=== PATIENT | male | born 1945 | race Caucasian/White ===

== ENCOUNTER 2024-12-04 05:48 | Day surgery (SDC) | payer MEDICARE ==
[2024-11-27 08:18] VITALS: BMI 22.9
[2024-12-04] MEDS ORDERED: Rocuronium Bromide 10 MG/ML (10ML VIAL) ONE (06:53)
[2024-12-04] MEDS ORDERED: fentaNYL PF 100 MCG/2 ML SYRINGE ONE (06:53)
[2024-12-04] MEDS ORDERED: Ondansetron PF 4 MG/2 ML Vial ONE (06:54)
[2024-12-04] MEDS ORDERED: Dexamethasone 20 MG/5 ML VIAL ONE (06:54)
[2024-12-04] MEDS ORDERED: PROPOFOL 20 ML ONE (06:54)
[2024-12-04] MEDS ORDERED: Lidocaine 1% PF 5 ML VIAL ONE (06:54)
[2024-12-04] MEDS ORDERED: Bupivacaine 0.25% HCL 30 ML VIAL ONE (07:17)
[2024-12-04] MEDS ORDERED: EPINEPHrine 1 MG/ML VIAL ONE (07:17)
[2024-12-04] MEDS ORDERED: CEFAZOLIN 2 GM VIAL ONE (07:23)
[2024-12-04] MEDS ORDERED: PHENYLEPHRINE-NS 100 MCG/ML 10 ML SYRINGE ONE (07:45)
[2024-12-04] MEDS ORDERED: Meperidine HCl/PF 25 MG (1 mL) VIAL ONE (09:22)
[2024-12-04] MEDS ORDERED: Glycopyrrolate 0.2 MG/ML 5 ML SYRINGE ONE (09:29)
[2024-12-04] MEDS ORDERED: NEOSTIGMINE 3 MG/3 ML SYRINGE ONE (09:29)
[2024-12-04] MEDS ORDERED: fentaNYL 50 mcg/mL 1 mL Vial ONE (09:34)
[2024-12-04] MEDS ORDERED: HYDROcodone/Acetaminophen 5/325 mg Tablet ONE (10:22)
== END 2024-12-04 11:34 | disposition home or self-care (01) ==
LOC: SDC 05:48
PROVIDERS: ATTEND Surgery
PROC: 0YUA4JZ Supplement Bilateral Inguinal Region with Synthetic Substitute, Percutaneous Endoscopic Approach (ICD-10-PCS; principal; 2024-12-04)
DX: K40.20 Bilateral inguinal hernia, without obstruction or gangrene, not specified as recurrent (principal); N40.0 Benign prostatic hyperplasia without lower urinary tract symptoms; Z88.8 Allergy status to other drugs, medicaments and biological substances; Z79.82 Long term (current) use of aspirin
CPT/HCPCS: 49650; C1781 ×2; J0171; J0665; J1100; J2175; J2405; J2704; J3010; S2900

== ENCOUNTER 2024-12-06 14:07 | Emergency (ER) | payer MEDICARE ==
[2024-12-06 14:52] LABS: #Basophils Less than 0.03 10x3/uL (0.0-0.2); #Eosinophils Less than 0.03 10x3/uL (0.0-0.7); %Basophils 0.2 % (0.0-1.0); %Lymphocytes 4.5 % (21.0-51.0); %Monocytes 6.4 % (0.0-10.0); %Neutrophils 88.5 % (42.0-75.0); Hematocrit 40.8 % (42.0-52.0); Mean Corpuscular HGB CONC 34.3 g/dL (32.0-36.0); Mean Corpuscular Hemoglobin 30.4 pg (27.0-31.0); Mean Corpuscular Volume 88.7 fL (78.0-98.0); Mean Platelet Volume 9.5 fL (7.4-10.4); Platelet Count 263 10x3/uL (130-400); RBC Distribution Width 12.4 % (11.5-14.5)
[2024-12-06 15:10] LABS: ALT (SGPT) 13 U/L (Less than 45); AST (SGOT) 35 U/L (11-34); Albumin 4.1 g/dL (3.1-4.5); Alkaline Phosphatase 71 U/L (40-110); Anion Gap 13 mmol/L (10-20); BUN (Urea Nitrogen) 13 mg/dL (8.4-25.7); Bilirubin, Total 0.7 mg/dL (0.3-1.2); Calc. Creatinine Clearance 0 mL/min (70-130); Calcium 9.1 mg/dL (7.8-10.44); Carbon Dioxide 27 mmol/L (23-31); Chloride 101 mmol/L (98-107); Estimated GFR 73; Globulin 3.3 g/dL (2.4-3.5); Glucose 129 mg/dL (83-110); Lipase 20 U/L (8-78); Potassium 4.1 mmol/L (3.5-5.1); Protein, Total 7.4 g/dL (5.8-8.1); Sodium 137 mmol/L (136-145)
[2024-12-06 15:12] LABS: Bacteria/HPF None Seen HPF (None Seen); Bilirubin Negative (Negative); Blood, Urine 2+ (Negative); CAUTI Indications for Culture Pelvic or flank pain; Clarity Clear (Clear); Glucose, Urine (Dipstick) Normal (Negative); Ketone, Urine Negative (Negative); Leukocyte 250 Leu/uL (Negative); Nitrite Negative (Negative); Protein, Urine (Dipstick) 20 mg/dL (Neg-Trace); RBC/HPF Greater than 50 HPF (0-3); Specific Gravity, Urine 1.034 (1.002-1.036); Squamous Epithelial None Seen HPF (0-3); Urobilinogen Normal mg/dL (Less than 2); WBC/HPF 21-50 HPF (0-3)
[2024-12-06 15:14] LABS: Urine Culture Reflex Yes Yes
[2024-12-06] MEDS ORDERED: Ketorolac Tromethamine 30 MG (1 mL) VIAL ONE (17:00)
== END 2024-12-06 19:10 | disposition home or self-care (01) ==
LOC: ERS 14:07
DX: K91.89 Other postprocedural complications and disorders of digestive system (principal); K56.7 Ileus, unspecified
CPT/HCPCS: 80053; 81001; 83605; 83690; 85025; 87086; J1885; 36415; 74177; 87428; 96361; 96374; J2270; J2405

== ENCOUNTER 2025-07-27 08:47 | Outpatient (CLI) | payer MEDICARE ==
[2025-07-27 09:39] LABS: Estimated GFR - POC 56.0
[2025-07-27] MEDS ORDERED: Iopamidol 370 76% 100 ML VIAL ONE (13:45)
== END 2025-07-27 08:48 | disposition home or self-care (01) ==
LOC: CT 08:47
PROVIDERS: ATTEND Family Medicine
DX: H05.89 Other disorders of orbit (principal); R10.30 Lower abdominal pain, unspecified; Z98.890 Other specified postprocedural states
CPT/HCPCS: 36415; 70543; 70553; 74177; 76376; 82565; Q9967